=== PATIENT | male | born 1950 | race Caucasian/White ===

== ENCOUNTER 2024-08-29 19:28 | Inpatient (IN) | payer OTHER, MEDICARE, SELFPAY ==
[2024-08-29] VITALS (17 sets, daily range): BP systolic 82–117; BP diastolic 49–74; PULSE 71–85; RESP 16–23; TEMP 36.4–36.8; O2SAT 90–95; BMI 26.2
--- NOTE | 2024-08-29 19:39 | ECG_ITS ---
APPROVED REPORT Exam: Resting ECG HR:67 bpm ECG Measurements Heart Rate 67 AXES DC 255 P 22 QRSd 113 QRS 61 QT 407 T 89 QTc 422 Conclusion SINUS RHYTHM WITH FIRST DEGREE AV BLOCK POSSIBLE ANTERIOR MYOCARDIAL INFARCTION , PROBABLY OLD [30 ms Q WAVE IN V3/V4, OR R < 0.2 mV IN V4] INFERIOR MYOCARDIAL INFARCTION , POSSIBLY ACUTE [40+ ms Q WAVE AND/OR ST/T ABNORMALITY IN II/aVF] ACUTE DE Electronically signed by : LILI CHI, 08/29/2024 22:19:33
--- NOTE | 2024-08-29 19:45 | ED_ITS ---
Discharge Plan Disposition Chief Complaint: Chest Pain Referrals Follow up/Referrals: Sergey Olmos MD [Primary Care Provider] - See instructions Clinical Impressions Clinical Impression: Myocardial infarction Discharge ED Provider: Rey Arias HPI General Stated Complaint: arms feel weak and dull ache Time Seen by Provider: 08/29/24 19:39 History of Present Illness HPI narrative: Patient is 73-year male with past medical history of hypertension who presents emergency department for evaluation of bilateral arm weakness. Onset was acute, 1-1/2 hours prior to arrival, no chest pain abdominal pain shortness of breath headache or other acute complaints at this time. No trauma. Related Data Allergies Allergy/AdvReac Type Severity Reaction Status Date / Time Penicillins (PENICILLINS) Allergy Mild Unknown Verified 08/29/24 19:47 allergy reaction [facility] Disclaimer: The information contained in this section may have been updated after the patient was seen, as this information can be updated by other users. Social History Smoking Status: Unknown if ever smoked alcohol intake: never current occupational status: other Travel in the last 8 weeks: None ROS Obtained: Yes Systems reviewed as appropriate & no additional complaints except as documented Physical Exam General General appearance: alert and in no apparent distress Head Head exam: atraumatic and normocephalic Eye Eye exam: Present PERRL and EOMI ENT ENT exam: Present mucous membranes moist Neck Neck exam: Present normal inspection Chest Chest inspection: Present normal inspection and symmetric chest wall rise Respiratory Respiratory exam: Present normal lung sounds bilaterally; Absent respiratory distress Cardiovascular Cardiovascular exam: Present regular rate and normal rhythm Abdominal Exam Abdominal exam: Present soft; Absent tenderness Extremities Exam Extremities exam: Present normal inspection and other (5 out of 5 strength bilateral upper and lower extremities, palpable bilateral radial pulses.) Neurological Exam Neurological exam: Present alert and CN II-XII intact Psychiatric Psychiatric exam: Present normal affect Skin Skin exam: Present warm and dry HEART Score HEART Score HEART Score assessment performed?: No History (anamnesis): Highly suspicious ECG: Significant ST-deviation Age: >65 years Risk factors: 1-2 risk factors Critical Care Critical Care Time Critical Care Time: Yes Attestation: On , the high probability of a clinically significant, sudden or life threatening deterioration of the following system(s) required my full and direct attention, intervention and personal management. The time I documented below is in addition to time spent performing reported procedures but includes the following listed in this critical care notation. Total Time Total Critical Care Time: 30 Medical Decision Making Mendez Inquiry Pt receiving controlled substance: No Response Orders (Tests/Meds): ED MEDICATIONS Generic Name Dose Route Start Last Admin Trade Name Freq PRN Reason Stop Dose Admin Aspirin 324 mg 08/29/24 19:43 Aspirin 81mg Chewable Tablet PO 08/29/24 19:44 ONCE ONE Sodium Chloride 1,000 mls @ 25 mls/hr 08/29/24 19:45 Sod Chlor 0.9% 1000ml Bag IV 09/28/24 19:44 .Q25H LIZ Miscellaneous 1 each 08/29/24 19:45 Heparin Drip Consult NOTAPPLIC 08/30/24 07:44 CONSULT PHARMACY LIZ Sodium Chloride 10 ml 08/29/24 19:43 Sodium Chloride 0.9% 10ml Flush Syringe IV 09/28/24 19:42 NEEDED PRN Maintain IV Site ORDERS Category Date Time Status Consult to Cardiology [CONS] Stat Cons 08/29/24 19:44 Active Complete Blood Count Auto Diff Stat Lab 08/29/24 19:44 Ordered Comprehensive Metabolic Panel Stat Lab 08/29/24 19:44 Ordered Lipid Panel Stat Lab 08/29/24 19:44 Ordered Troponin I Q3H Lab 08/29/24 22:45 Ordered Troponin I Q3H Lab 08/30/24 01:45 Ordered Troponin I Stat Lab 08/29/24 19:44 Ordered MDM Narrative Medical Decision Narrative: Insert me patient is 73-year-old male with past medical history of scrota presents Emergency Department for evaluation of weakness. EKG obtained at bedside patient is having an inferior STEMI with reciprocal changes upon arrival. He is not having chest pain. The case was immediately discussed with Dr. Bolanos, full dose aspirin and heparin will be given patient will proceed for heart catheterization at this time. Heart score was not performed due to initial troponin pending at time of transfer to Patient Account Analyst.
[2024-08-29] MEDS: ASPIRIN 81MG CHEWABLE TABLET 324 MG PO (19:47)
[2024-08-29] MEDS: HEPARIN SODIUM 5,000 UNIT/ML VIAL 4000 UNIT IV (19:50)
[2024-08-29] MEDS: 0.9 % SODIUM CHLORIDE 1000ML 1,000 ML 25 ML IV (19:51)
[2024-08-29 19:57] LABS: Basophils % 0.3 % (0.1-2.0); Eosinophils # 0.1 Kmm3 (0.0-0.4); Eosinophils % 0.7 % (0.1-12.0); Hemoglobin 16.1 g/dL (14.1-18.0); Lymphocytes # 1.6 K/mm3 (0.7-4.5); Lymphocytes % 16.3 % (10-50); Mean Corpuscular Hemoglobin 32.8 pg (27.0-31.2); Mean Corpuscular Volume 93.7 fl (80-94); Mean Platelet Volume 10.7 fl (7.4-10.4); Monocytes # 0.8 K/mm3 (0.1-1.0); Monocytes % 8.2 % (1.7-9.3); Neutrophils # 7.2 K/mm3 (1.8-7.8); Neutrophils % 74.1 % (37.0-80.0); Nucleated Red Blood Cells # 0 10^3/uL; Nucleated Red Blood Cells % 0 %; Platelet Count 143 K/mm3 (142-424); Red Blood Count 4.91 M/mm3 (4.60-6.20); Red Cell Distribution Width 12.4 % (11.5-17.5); Red Cell Distribution Width-SD 42.5 fL; White Blood Count 9.7 K/mm3 (4.8-10.8)
--- NOTE | 2024-08-29 19:58 | IR_ITS ---
APPROVED REPORT Patient Location: Emergent Weight Clerk: ROSALINDA Garrido RT (R) PROCEDURES Selective coronary angiogram Mechanical l thrombectomy to the dominant right coronary Drug-eluting stent deployment to the mid dominant right coronary INDICATION Acute inferolateral ST elevation myocardial infarction, Coronary artery disease Informed consent was obtained prior to the procedure. COMPLICATIONS NONE Estimated Blood Loss: LESS THAN 10 ML TECHNIQUE One percent lidocaine used to anesthetize the right anterior aspect of the wrist. The right radial artery was accessed via the Seldinger technique. A 6 Syrian sheath was placed in the right radial artery. 2.5 mg of Verapamil, 800 mcg of nitroglycerin, 1mg Lidocaine and 5000 U Heparin were given through the arterial sheath. The 6 Syrian JL 3 guide catheter was also used to perform selective coronary angiogram. 4300 units of heparin was administered in the emergency department. The guide catheter was placed in dominant right coronary followed by Choice PT extra-support wire placed distally. A penumbra mechanical thrombectomy device was advanced and aspirated a large thrombus thereby restoring JERRELL-3 flow. A 5 mm x 26 mm [place] frontier stent was deployed at 14 mendy reducing the critical stenosis to 0%. JERRELL 0 flow was present at the beginning of the procedure with JERRELL-3 flow at the end the procedure. At the end the procedure the apparatus was removed the sheath was removed and hemostasis was achieved using TR banding patient was transferred to the postop boarding in stable condition ANGIOGRAPHIC RESULTS The left main artery Normal The left anterior descending artery Has proximal and mid vessel 30% stenoses The circumflex artery Large nondominant highly tortuous with mild luminal regularities The right coronary artery Massively large and dominant with proximal and mid vessel 20% stenosis and occluded after the RV marginal branch. Following revascularization the right coronary artery was widely patent with diffuse 10 to 20% stenoses with JERRELL-3 inline flow The ARMENTA ventriculogram reveals Not performed The left ventricular end-diastolic pressure Not measured IMPRESSION Acute inferolateral ST elevation myocardial infarction Successful mechanical thrombectomy followed by drug-eluting stent deployment of the massively large dominant right coronary artery 1 out of percent occlusion reduced to 0% as described above with 1 drug-eluting stent PLAN 1. Plavix and aspirin 2. LDL less than 55 achieved with high intensity statin 3. At least 48 hours of continuous telemetry 4. Supportive care 5. Echocardiogram in the morning 6. Avoidance of tobacco products Electronically signed by : Jackson Bolanos MD 08/29/2024 20:39:31
[2024-08-29 20:06] LABS: Alanine Aminotransferase 18 U/L (12-78); Albumin Level 4.3 g/dl (3.5-5.0); Albumin/Globulin Ratio 1.2 (1.1-1.8); Alkaline Phosphatase 78 U/L (38-126); Anion Gap 10.7 mEq/L (5-15); Aspartate Amino Transferase 29 U/L (17-59); Bilirubin,Total 0.7 mg/dl (0.2-1.3); Blood Urea Nitrogen 19 mg/dl (9-20); Calcium 9.3 mg/dl (8.4-10.2); Carbon Dioxide 31 mmol/L (22.0-30.0); Chloride 99 mmol/L (98-107); Chol/HDL Ratio 4.4 (1-3.5); Cholesterol 153 mg/dl (140-200); Creatinine Clearance Estimated 85 mL/min (50-200); Estimated Glomerular Filt Rate 73 ml/min (>60); GFR (African American) 88 ML/MIN (>60); Globulin 3.5 g/dL (1.3-3.2); Glucose 137 mg/dl (74-100); HDL Cholesterol 35 mg/dl (40-60); Potassium 3.7 mmoL/L (3.5-5.1); Sodium 137 mmol/L (136-145); Total Protein,Serum 7.8 g/dl (6.3-8.2); Triglycerides 294 mg/dl (30-150); VLDL Cholesterol 59 mg/dL (0-40)
--- NOTE | 2024-08-29 20:08 | PC.NURSE ---
Patient transported to candlemaking laborer by household appliance assembler and DORIAN Cardenas
[2024-08-29 20:17] LABS: Direct LDL Cholesterol 71.14 mg/dL (100-129)
[2024-08-29 20:23] LABS: Troponin I < 0.01 ng/ml (0.00-0.034)
[2024-08-29] MEDS: LIDOCAINE 1% 10ML MDV 10 ML IJ (20:47)
[2024-08-29] MEDS: NITROGLYCERIN 800MCG/8ML SYR (CATH LAB) 800 MCG IA (20:48)
[2024-08-29] MEDS: 0.9 % SODIUM CHLORIDE 500 ML 25 ML IV (20:48)
[2024-08-29] MEDS: HEPARIN 1,000 UNITS/500ML NS (CATH LAB) 3000 UNIT IV (20:48)
[2024-08-29] MEDS: diphenhydrAMINE 50MG/ML VIAL 50 MG IV (20:48)
[2024-08-29] MEDS: VERAPAMIL 2.5MG/ML 2ML VIAL 2.5 MG IV (20:48)
[2024-08-29] MEDS: CLOPIDOGREL 300MG TABLET 600 MG PO (21:05)
[2024-08-29] MEDS: IOPAMIDOL-370 (76%);100ML BOTTLE 90 ML IV (21:10)
[2024-08-29 21:12] LABS: CATHL Activated Clotting Time 288 SEC (74-125)
--- NOTE | 2024-08-29 21:34 | PC.NURSE ---
Patient arrived to floor via stretcher from manager cardiac cath at 21:16.
[2024-08-29 22:04] LABS: POC Glucose,Bedside 115 (70-110)
--- NOTE | 2024-08-29 22:12 | P.HP_ITS ---
<Statement entered by Sandoval Sorto MD - 08/30/24 17:16> Rounded on patient after nurse practitioner. Personally examined and interviewed patient. Agree with exam findings and care plan as documented. History of Present Illness *Admission Date: 08/29/24 *Reason for visit:: Arm weakness *History of present illness: This is a 73-year-old male who has a past medical history significant for hypertension who presents with a chief complaint of bilateral arm weakness. Due to patient's symptoms, he presented to the emergency room for evaluation. While in the emergency room, patient was noted to have an acute STEMI. Acute STEMI alert was activated. Patient was given DAPT therapy and transition to the microbiological laboratory technician for percutaneous coronary intervention. During my evaluation of the patient, patient was not complaining of any chest pain but reports that he has been having this arm weakness that started about 1- 1/2 hours prior to presenting to the hospital. He is currently without any lightheadedness, dizziness, PND, orthopnea, nausea, vomiting, shortness of breath, dyspnea, or diarrhea. Additional pertinent labs obtained include a bicarbonate of 31, blood glucose 137, triglycerides of 294, LDL of 71, and HDL 35. [facility] Disclaimer: The information contained in this section may have been updated after the patient was seen, as this information can be updated by other users. Medical History (Updated 08/30/24 @ 09:23 by DEBRA Weston) Pneumonia Hyperlipidemia Myocardial infarction acute Bladder cancer Hypertension Surgical History (Updated 08/29/24 @ 22:16 by Belle Yang RN) H/O hand surgery History of bladder surgery Family History (Updated 08/29/24 @ 22:18 by Belle Yang RN) Alzheimer dementia Brain cancer Lung cancer Social History (Updated 08/29/24 @ 22:19 by Belle Yang RN) Smoking Status: Current every day smoker alcohol intake: never current occupational status: other Travel in the last 8 weeks: None Have you lived/traveled outside US in past 30 days?: No Contact w/someone who lives/traveled outside US past 30 days?: No Exposure to someone with infectious disease in past 14 days?: No Do you have a fever (greater than 100.4 F or 38 C)?: No Have you tested positive for COVID-19: No Exposed to someone with COVID-19 in past 14 days?: No Do you have a sore throat?: No Do you have a cough?: No Do you have any weakness?: No Are you experiencing any nausea/vomitting?: No Do you have any diarrhea?: No Are you experiencing any unusual bleeding?: No Do you have any muscle aches/pain?: No Do you have any abdominal pain?: No Are you experiencing loss of taste or smell?: No Review of Systems Review of Systems Review of systems:: pertinent systems reviewed and negative unless documented below Constitutional Constitutional: Reports system reviewed and no additional complaints, except as documented Eyes Eyes: Reports system reviewed and no additional complaints, except as documented ENT Ears, Nose, Mouth, and Throat: Reports system reviewed and no additional compl aints, except as documented *Cardiovascular Cardiovascular: Reports system reviewed and no additional complaints, except as documented *Respiratory Respiratory: Reports system reviewed and no additional complaints, except as documented *Gastrointestinal Gastrointestinal: Reports system reviewed and no additional complaints, except as documented *Genitourinary Genitourinary: Reports system reviewed and no additional complaints, except as documented *Musculoskeletal Musculoskeletal: Reports other Comments: Bilateral arm weakness Integumentary/Breasts Skin/Breast: Reports system reviewed and no additional complaints, except as documented *Neurologic Neurologic: Reports system reviewed and no additional complaints, except as documented Psychiatric Psychiatric: Reports system reviewed and no additional complaints, except as documented Endocrine Endocrine: Reports system reviewed and no additional complaints, except as documented Hematologic/Lymphatic Hematologic/Lymphatic: Reports system reviewed and no additional complaints, except as documented Allergic/Immunologic Allergic/Immunologic: Reports system reviewed and no additional complaints, except as documented Meds Home Medications and Allergies Home Medications ?Medication ?Instructions ?Recorded ?Confirmed ?Type aspirin 81 mg tablet,delayed 81 mg PO DAILY 08/29/24 08/29/24 History release hydrochlorothiazide 25 mg tablet 25 mg PO Q48H 08/29/24 08/30/24 History New Prescriptions to Start Prescriptions: Allergies Allergy/AdvReac Type Severity Reaction Status Date / Time Penicillins (PENICILLINS) Allergy Mild Unknown Verified 08/29/24 19:47 allergy reaction Exam Data for Last 24 hours Vital signs and Labs for Last 24 Hours: Temp Pulse Resp BP Pulse Ox O2 Del Method 97.8 F 81 16 92/56 L 94 L Room Air 08/29/24 21:30 08/29/24 22:00 08/29/24 22:00 08/29/24 22:00 08/29/24 22:00 08/29/24 22:00 Laboratory Results - last 24 hr 08/29/24 19:47: WBC 9.7, RBC 4.91, Hgb 16.1, Hct 46.0, MCV 93.7, MCH 32.8 H, MCHC 35.0, RDW 12.4, Plt Count 143, MPV 10.7 H, Neut % (Auto) 74.1, Lymph % (Auto) 16.3, [place] % (Auto) 8.2, Eos % (Auto) 0.7, Baso % (Auto) 0.3, Neut # (Auto) 7.2, Lymph # (Auto) 1.6, [place] # (Auto) 0.8, Eos # (Auto) 0.1, Baso # (Auto) 0.0, Sodium 137, Potassium 3.7, Chloride 99, Carbon Dioxide 31 H, Anion Gap 10.7, BUN 19, Creatinine 1.00, Estimated Creat Clear 85, Estimated GFR 73, Est GFR ( Amer) 88, Glucose 137 H, Calcium 9.3, Total Bilirubin 0.7, AST 29, ALT 18, Alkaline Phosphatase 78, Troponin I < 0.01, Total Protein 7.8, Albumin 4.3, Globulin 3.5 H, Albumin/Globulin Ratio 1.2, Triglycerides 294 H, Cholesterol 153, LDL Cholesterol Direct 71.14 L, VLDL Cholesterol 59 H, HDL Cholesterol 35 L, Cholesterol/HDL Ratio 4.4 H 08/29/24 20:15: Activated Clotting Time 288 H* 08/29/24 21:54: POC Glucose 115 H I & O for Last 24 hours: Intake & Output 08/26/24 08/27/24 08/28/24 08/29/24 23:59 23:59 23:59 23:59 Weight 92.624 kg Constitutional Constitutional: no acute distress and cooperative *Routine HEENT Exam Head: Present normocephalic and atraumatic Eye: Present EOMI and PERRL ENT: Present mucous membranes moist *Routine Neck Exam Neck: Present supple, full ROM and trachea midline *Routine Respiratory Exam Respiratory: Present decreased breath sounds, normal respiratory effort, able to speak in complete sentences and symmetric chest movement *Routine Cardiovascular Exam Cardiovascular: Present RRR, Normal S1 and Normal S2 *Routine Abdominal Exam Abdominal: Present soft and normoactive bowel sounds *Routine Rectal Exam Rectal:: deferred *Routine Genitalia Exam Genitalia:: deferred *Routine Extremities Exam Extremities: Present full ROM, pulses intact and normal capillary refill Routine Back/Spine/Pelvis Exam Back/Spine: Present full ROM *Routine Skin Exam Skin: Present intact, dry, warm and normal turgor *Routine Neurological Exam Neurological: Present alert, oriented X3, CN II-XII intact, moving all extremities and normal speech Routine Psychiatric Exam Psychiatric: Present normal affect, normal thought process, cooperative, good insight and good judgment H&P: Result Impressions 73-year-old male presents with arm heaviness with EKG findings consistent with inferior CT. Patient was transition to the Escrow Assistant for acute coronary intervention Assessment and Plan *Assessment and plan (1) Myocardial infarction: Status: Acute Qualifiers: Involved coronary artery: right coronary artery Myocardial infarction type: unspecified Qualified Code(s): I21.11 - ST elevation (STEMI) myocardial infarction involving right coronary artery Category: Medical Code(s): I21.9 - Acute myocardial infarction, unspecified Plan 73-year-old male who presented with bilateral arm weakness and pain. Found to have inferior STEMI on presentation. Taken to Escrow Assistant, drug-eluting stent placed in the RCA after thrombectomy. Case discussed with the ER physician, request admission after heart cath. Medicine agreed to admit. Continue aspirin and Plavix. Necessitating inpatient management. Problems addressed as follows: Assessment: Acute STEMI: Inferior - Patient is status post left heart cath with drug-eluting stent to the right coronary artery - Patient has received loading dose of Plavix - Will continue 75 mg of Plavix daily -Will obtain 2D echo in the a.m. - Continue 81 mg of aspirin p.o. daily Hypercholesterolemia - Will start 20 mg of Zocor p.o. nightly Hyperglycemia:? -Obtain hemoglobin A1c Plan: Admit patient to the intensive care unit Saline lock Vital signs every hour CBC/BMP daily 5000 units of heparin subcu 3 times daily 5 mg [place] p.o. every 4 hours for moderate pain 2 mg morphine IV push every 2 hours as needed severe pain 21 mg nicotine patch daily Full code I will discuss this case with attending physician Dr. Madrigal and I look forward to more input
[2024-08-30] VITALS (16 sets, daily range): BP systolic 96–142; BP diastolic 54–92; PULSE 55–87; RESP 14–22; TEMP 36.6–36.8; O2SAT 91–95; BMI 26.2
--- NOTE | 2024-08-30 01:57 | PC.NURSE ---
Called REHANA Morales about pt having runs of v-tach. Pt had a run of 11 beats, 13 beats and 14 beats of vtach. Pt is asleep no complaints of any pain and pt is hemodynamically stable. REHANA advised we will continue to monitor the pt.
--- NOTE | 2024-08-30 04:50 | PC.NURSE ---
Assessed pts radial site. blood this coming thru the 2x2 at this time. direct pressure was held for 10 minutes and a new dressing was placed over the site. At this time bleeding has stopped.
--- NOTE | 2024-08-30 05:09 | ECG_ITS ---
APPROVED REPORT Exam: Resting ECG HR:77 bpm ECG Measurements Heart Rate 77 AXES QRSd 97 QRS -17 QT 421 T -6 QTc 453 Conclusion ATRIAL FIBRILLATION WITH ABERRANT CONDUCTION OR VENTRICULAR PREMATURE COMPLEXES LOW QRS VOLTAGE IN PRECORDIAL LEADS [QRS DEFLECTION < 1.0 mV IN CHEST LEADS] INFERIOR MYOCARDIAL INFARCTION , OF INDETERMINATE AGE [40+ ms Q WAVE AND/OR ST/T ABNORMALITY IN II/aVF] ABNORMAL ECG UNCONFIRMED REPORT Electronically signed by : Mehrdad Ha MD 08/30/2024 08:21:59
--- NOTE | 2024-08-30 05:15 | PC.NURSE ---
Provider notified of EKG that was obtained. REHANA Morales came to look at the ekg and Pt is having PVC's no block at this time.
--- NOTE | 2024-08-30 05:18 | ECG_ITS ---
APPROVED REPORT Exam: Resting ECG HR:67 bpm ECG Measurements Heart Rate 67 AXES QRSd 103 QRS -10 QT 413 T -2 QTc 428 Conclusion SUPRAVENTRICULAR Bracycardia RHYTHM with frequent pvcs ANTERIOR MYOCARDIAL INFARCTION , PROBABLY OLD [40+ ms Q WAVE AND/OR ST/T ABNORMALITY IN V3/V4] INFERIOR MYOCARDIAL INFARCTION , OF INDETERMINATE AGE [40+ ms Q WAVE AND/OR ST/T ABNORMALITY IN II/aVF] ABNORMAL ECG UNCONFIRMED REPORT Electronically signed by : Mehrdad Ha MD 08/31/2024 08:17:45
--- NOTE | 2024-08-30 05:30 | PC.NURSE ---
Stuart Morales APRN was given an EKG on the patient and after he looked at it he was going to give Dr. Bolanos a call.
--- NOTE | 2024-08-30 05:30 | PC.NURSE ---
Went into check pts radial site, at this time blood is coming thru the 2x2. Direct pressure was applied for 10 minutes and then a new bandage was applied. pt was instructed to try and not bed the right wrist or to not use it if at all possible to try and help it not bleed
[2024-08-30 06:22] LABS: Basophils % 0.5 % (0.1-2.0); Eosinophils # 0.1 Kmm3 (0.0-0.4); Hematocrit 42.5 % (42.0-52.0); Hemoglobin 14.9 g/dL (14.1-18.0); Lymphocytes # 1.3 K/mm3 (0.7-4.5); Lymphocytes % 21.2 % (10-50); Mean Corpuscular HGB Conc 35.1 g/dL (31.8-35.4); Mean Corpuscular Hemoglobin 32.7 pg (27.0-31.2); Mean Corpuscular Volume 93.2 fl (80-94); Monocytes # 0.7 K/mm3 (0.1-1.0); Monocytes % 11.7 % (1.7-9.3); Neutrophils # 4.1 K/mm3 (1.8-7.8); Neutrophils % 65.3 % (37.0-80.0); Nucleated Red Blood Cells # 0 10^3/uL; Nucleated Red Blood Cells % 0 %; Platelet Count 106 K/mm3 (142-424); Red Blood Count 4.56 M/mm3 (4.60-6.20); Red Cell Distribution Width 12.4 % (11.5-17.5); Red Cell Distribution Width-SD 42.5 fL; White Blood Count 6.2 K/mm3 (4.8-10.8)
[2024-08-30 06:26] LABS: Chloride 101 mmol/L (98-107)
[2024-08-30 06:27] LABS: Potassium 3.9 mmoL/L (3.5-5.1); Sodium 136 mmol/L (136-145)
[2024-08-30 06:29] LABS: Blood Urea Nitrogen 20 mg/dl (9-20); Creatinine Clearance Estimated 85 mL/min (50-200); Estimated Glomerular Filt Rate 73 ml/min (>60); GFR (African American) 88 ML/MIN (>60)
[2024-08-30 06:30] LABS: Anion Gap 4.9 mEq/L (5-15); Carbon Dioxide 34 mmol/L (22.0-30.0); Glucose 98 mg/dl (74-100)
[2024-08-30] MEDS: CLOPIDOGREL 75MG TAB 75 MG PO (08:07)
[2024-08-30] MEDS: ASPIRIN EC 81MG TABLET 81 MG PO (08:07)
[2024-08-30 08:31] LABS: Hemoglobin A1C 5.2 % (4.0-6.0)
--- NOTE | 2024-08-30 08:53 | HMH.PHAINT1 ---
Pharmacy Intervention Comments: MEDICATION RECONCILIATION COMPLETED ON PATIENT VIA CALL TO [facility]. -ALIZA DEMARCO, MERCEDEZD
--- NOTE | 2024-08-30 09:00 | CA_ITS ---
APPROVED REPORT EXAM: Comprehensive 2D, Doppler, and color-flow Echocardiogram Seed Potato Cutter: Eli Dobson CRT Ht: 6 ft 2 in Wt: 204lbs BSA: 2.19 BP: 92/56 mmHg Indications: STEMI, Hyperlipidemia, Hypertension/HDD, bladder CA, thrombectomy 08/29/24 , run of [employer] at 5 am 2D Dimensions LA Volume 35.80 mL LA Volume Index 16.00 mL/m2 (M/F) 16-34 M-Mode Dimensions RVDd 3.90 cm (0.9-2.6) LA Diam 2.94 cm (1.9-4.0) LVDd 4.86 cm (3.5-5.7) LVDs 3.82 cm (3.5-5.7) IVSd 1.29 cm (0.6-1.1) PWd 0.76 cm (0.6-1.1) EF (Teich) 43.40% FS 21.40% EDV (Teich) 110.70 mL TAPSE 2.02 (<1.7) ESV (Teich) 62.70 mL LV Diastology E Decel Time 133 (160-240 msec) E/A Ratio 0.61 MED A' 12.10 cm/s LAT A' 9.40 cm/s Aortic Valve AO Peak GR. 4.20 mmHg Mitral Valve MV A Velocity 73.0 (40-130 cm/s) E/A Ratio 0.61 Pulmonary Valve PV Peak Velocity 89.0 (50-150 cm/s) Tricuspid Valve TR P. Velocity 172.00 cm/s RAP Estimate 10.00 mmHg RVSP 21.80 mmHg Left Ventricle The left ventricle is normal size. The left ventricular systolic function is mildly to moderately reduced. There is normal left ventricular wall thickness. There is mild to moderate global hypokinesis. The left ventricular diastolic function is normal. LVEF is 40%. Right Ventricle Right ventricle is moderately dilated. Right ventricle is mildly hypokinetic. Atria The left atrium size is normal. The right atrium is mildly dilated. There is no Doppler evidence of interatrial shunt. The aortic valve is mildly thickened. Aortic Valve There is no aortic valvular stenosis. No aortic regurgitation is present. Mitral Valve The mitral valve is normal in structure. No evidence of mitral valve stenosis. Trace mitral regurgitation. Tricuspid Valve Tricuspid valve is grossly normal in structure and function. Trace tricuspid regurgitation. There is insufficient TR jet to estimate RVSP. Pulmonic Valve The pulmonary valve is normal in structure. Trace pulmonic regurgitation. Great Vessels The aortic root is normal in size. IVC is normal in size and collapses >50% with inspiration. Pericardium There is no pericardial effusion. Other Information Study Quality: Fair Conclusion Mild to moderate reduction in LV systolic function (LVEF 40%). Moderate RV dilation with mild reduction in RV function. Mild RA dilation. No significant valvular stenosis or regurgitation. Electronically signed by : Bushra Owens MD 08/30/2024 12:43:54
--- NOTE | 2024-08-30 09:13 | EXP.CARD.CON ---
History of Present Illness History of Present Illness Consult date: 08/30/24 Requesting physician: Da Madrigal Consult reason: chest pain Chief complaint: STEMI Additional Medical History:: 1. Tobacco use A. 1 ppd for 55 yrs 2. PAF A. History of cardioversion about 2021. No OAC or rate/rhythm control meds started. 3. HTN A. Treated for years 4. HLD A. LDL 71 on 08/29/2024 History of present illness: 73 yo WM with history of tobacco use, HTN and hyperlipidemia presented to ER for 1 and 1/2 hrs of bilateral upper arm aching without chest pain/pressure or tightness. EKG revealed inferior STEMI and pt was taken to casting house laborer urgently with subsequent RCA thrombectomy and stenting. This AM he states he is feeling much better. We discussed results of cath and recommendation to monitor for 48 hrs. [facility] Disclaimer: The information contained in this section may have been updated after the patient was seen, as this information can be updated by other users. Medical History (Updated 08/30/24 @ 09:23 by DEBRA Weston) Pneumonia Hyperlipidemia Myocardial infarction acute Bladder cancer Hypertension Surgical History (Updated 08/29/24 @ 22:16 by Belle Yang RN) H/O hand surgery History of bladder surgery Family History (Updated 08/29/24 @ 22:18 by Belle Yang RN) Other Alzheimer dementia Brain cancer Lung cancer Social History (Updated 08/29/24 @ 22:19 by Belle Yang RN) Smoking Status: Current every day smoker alcohol intake: never current occupational status: other Travel in the last 8 weeks: None Have you lived/traveled outside US in past 30 days?: No Contact w/someone who lives/traveled outside US past 30 days?: No Exposure to someone with infectious disease in past 14 days?: No Do you have a fever (greater than 100.4 F or 38 C)?: No Have you tested positive for COVID-19: No Exposed to someone with COVID-19 in past 14 days?: No Do you have a sore throat?: No Do you have a cough?: No Do you have any weakness?: No Are you experiencing any nausea/vomitting?: No Do you have any diarrhea?: No Are you experiencing any unusual bleeding?: No Do you have any muscle aches/pain?: No Do you have any abdominal pain?: No Are you experiencing loss of taste or smell?: No Review of Systems Review of Systems Review of systems:: pertinent systems reviewed and negative unless documented below *Cardiovascular Cardiovascular: Denies chest pain *Respiratory Respiratory: Denies chest congestion *Neurologic Neurologic: Reports system reviewed and no additional complaints, except as documented Exam Data for Last 24 hours Vital signs and Labs for Last 24 Hours: Temp Pulse Resp BP Pulse Ox O2 Del Method 98.2 F 66 20 142/92 H 95 Room Air 08/30/24 08:00 08/30/24 09:00 08/30/24 09:00 08/30/24 09:00 08/30/24 09:00 08/30/24 09:00 Laboratory Results - last 24 hr 08/29/24 19:47: WBC 9.7, RBC 4.91, Hgb 16.1, Hct 46.0, MCV 93.7, MCH 32.8 H, MCHC 35.0, RDW 12.4, Plt Count 143, MPV 10.7 H, Neut % (Auto) 74.1, Lymph % (Auto) 16.3, [place] % (Auto) 8.2, Eos % (Auto) 0.7, Baso % (Auto) 0.3, Neut # (Auto) 7.2, Lymph # (Auto) 1.6, [place] # (Auto) 0.8, Eos # (Auto) 0.1, Baso # (Auto) 0.0, Sodium 137, Potassium 3.7, Chloride 99, Carbon Dioxide 31 H, Anion Gap 10.7, BUN 19, Creatinine 1.00, Estimated Creat Clear 85, Estimated GFR 73, Est GFR ( Amer) 88, Glucose 137 H, Calcium 9.3, Total Bilirubin 0.7, AST 29, ALT 18, Alkaline Phosphatase 78, Troponin I < 0.01, Total Protein 7.8, Albumin 4.3, Globulin 3.5 H, Albumin/Globulin Ratio 1.2, Triglycerides 294 H, Cholesterol 153, LDL Cholesterol Direct 71.14 L, VLDL Cholesterol 59 H, HDL Cholesterol 35 L, Cholesterol/HDL Ratio 4.4 H 08/29/24 20:15: Activated Clotting Time 288 H* 08/29/24 21:54: POC Glucose 115 H 08/29/24 22:51: Troponin I 40.00 H 08/30/24 01:53: Troponin I 116.00 H 08/30/24 05:54: WBC 6.2 D, RBC 4.56 L, Hgb 14.9, Hct 42.5, MCV 93.2, MCH 32.7 H, MCHC 35.1, RDW 12.4, Plt Count 106 L D, MPV 11.0 H, Neut % (Auto) 65.3, Lymph % (Auto) 21.2, [place] % (Auto) 11.7 H, Eos % (Auto) 1.0, Baso % (Auto) 0.5, Neut # (Auto) 4.1, Lymph # (Auto) 1.3, [place] # (Auto) 0.7, Eos # (Auto) 0.1, Baso # (Auto) 0.0, Sodium 136, Potassium 3.9, Chloride 101, Carbon Dioxide 34 H, Anion Gap 4.9 L, BUN 20, Creatinine 1.00, Estimated Creat Clear 85, Estimated GFR 73, Est GFR ( Amer) 88, Glucose 98 D, Hemoglobin A1c 5.2, Calcium 9.0 I & O for Last 24 hours: Intake & Output 08/27/24 08/28/24 08/29/24 08/30/24 11:59 11:59 11:59 11:59 Intake Total 590 / 590 Output Total 300 / 300 Balance 290 / 290 Weight 204 lb 3.215 oz Constitutional Constitutional: no acute distress *Routine Respiratory Exam Respiratory: Present CTA bilaterally; Absent wheezes or crackles *Routine Cardiovascular Exam Cardiovascular: Present RRR; Absent murmur, gallop or rubs *Routine Extremities Exam Extremities: Absent edema Meds Home Medications and Allergies Home Medications ?Medication ?Instructions ?Recorded ?Confirmed ?Type aspirin 81 mg tablet,delayed 81 mg PO DAILY 08/29/24 08/29/24 History release hydrochlorothiazide 25 mg tablet 25 mg PO Q48H 08/29/24 08/30/24 History New Prescriptions to Start Prescriptions: Allergies Allergy/AdvReac Type Severity Reaction Status Date / Time Penicillins (PENICILLINS) Allergy Mild Unknown Verified 08/29/24 19:47 allergy reaction Assessment and Plan *Assessment and plan (1) STEMI (ST elevation myocardial infarction): Status: Acute Qualifiers: Involved coronary artery: right coronary artery Qualified Code(s): I21.11 - ST elevation (STEMI) myocardial infarction involving right coronary artery Category: Medical Code(s): I21.3 - ST elevation (STEMI) myocardial infarction of unspecified site (2) Tobacco use: Status: Acute Category: Social Hx Code(s): Z72.0 - Tobacco use (3) Hyperlipidemia: Status: Acute Qualifiers: Hyperlipidemia type: mixed hyperlipidemia Qualified Code(s): E78.2 - Mixed hyperlipidemia Category: Medical Code(s): E78.5 - Hyperlipidemia, unspecified (4) Hypertension: Status: Acute Qualifiers: Hypertension type: primary hypertension Qualified Code(s): I10 - Essential (primary) hypertension Category: Medical Code(s): I10 - Essential (primary) hypertension Plan 1. Inferior STEMI -CHERELLE to RCA -ASA and plavix -atorvastatin 40 mg daily 2. HTN -lisinopril 2.5 mg daily -check echo 3. HLD -start atorvastatin -LDL 71 4. History of A. fib X 1 with cardioversion about 2021 -monitor on telemetry -no OAC at this time -CHADS-VASC is 3 5. thrombocytopenia -plt dropped from 143 to 106. -repeat in AM Monitor for 48 hrs. Will send home with 2 wks monitor to assess for A. fib due to history. adjust meds to include FROY and BB. Echo shows LVEF of 40% with mild to moderate global hpokinesis. Moderate RV dilation with mild RV hypokinesis. No significant valve disease. Anticipate discharge tomorrow afternoon if stable.
[2024-08-30] MEDS: SODIUM CHLORIDE 3% 15ML NEB 3 ML IH (09:22)
[2024-08-30] MEDS: LISINOPRIL 2.5MG TABLET 2.5 MG PO (09:59)
[2024-08-30] MEDS: METOPROLOL SUCCINATE XL 25MG TABLET 25 MG PO (16:14)
--- NOTE | 2024-08-30 17:13 | EXP.ACUTE.PN ---
Subjective *Date: 08/30/24 *Time: 17:31 Interval history: Patient feeling better today. Denies any arm weakness or pain. Denies chest pain. Stable on room air. Monitoring overnight, had some intermittent PVCs but no sustained arrhythmias. Family at bedside. Overall feeling well Medical Exam Vital signs and Labs for Last 24 Hours: Vital Signs Temp Pulse Pulse Resp BP BP Pulse Ox 08/30/24 16:00 60 08/30/24 16:00 98.1 F 76 16 111/58 L 93 L 08/30/24 15:00 08/30/24 13:00 08/30/24 12:00 70 08/30/24 12:00 87 18 114/68 94 L 08/30/24 11:00 08/30/24 09:22 74 18 08/30/24 09:00 66 20 142/92 H 95 08/30/24 09:00 08/30/24 08:00 60 08/30/24 08:00 08/30/24 08:00 98.2 F 65 19 116/72 93 L 08/30/24 07:00 65 20 136/83 93 L 08/30/24 06:50 08/30/24 06:00 61 17 134/87 95 08/30/24 06:00 59 L 18 134/87 94 L 08/30/24 05:00 55 L 14 135/80 94 L 08/30/24 05:00 08/30/24 05:00 63 17 135/90 94 L 08/30/24 04:00 72 22 105/65 L 92 L 08/30/24 04:00 56 L 93 L 08/30/24 04:00 60 08/30/24 04:00 97.9 F 59 L 19 105/65 L 93 L 08/30/24 03:00 58 L 16 97/60 L 93 L 08/30/24 03:00 08/30/24 03:00 60 20 97/60 L 94 L 08/30/24 02:10 65 18 106/63 L 93 L 08/30/24 02:00 62 16 106/63 L 93 L 08/30/24 01:00 98.0 F 67 16 99/65 L 93 L 08/30/24 01:00 08/30/24 01:00 68 17 99/65 L 94 L 08/30/24 00:01 98.2 F 78 18 97/61 L 91 L 08/30/24 00:00 76 08/30/24 00:00 76 92 L 08/30/24 00:00 98.2 F 78 19 97/61 L 92 L 08/29/24 23:31 98.2 F 75 20 104/65 L 93 L 08/29/24 23:01 98.2 F 82 21 95/62 L 94 L 08/29/24 23:00 73 22 96/62 L 94 L 08/29/24 23:00 82 20 95/62 L 94 L 08/29/24 23:00 08/29/24 22:30 98.0 F 81 23 103/66 L 93 L 08/29/24 22:00 98.0 F 85 18 92/56 L 92 L 08/29/24 22:00 81 16 92/56 L 94 L 08/29/24 21:45 97.8 F 81 22 89/59 L 90 L 08/29/24 21:30 97.8 F 82 20 82/54 L 93 L 08/29/24 21:21 84 08/29/24 21:10 80 20 95/50 L 90 L 08/29/24 21:00 08/29/24 21:00 78 20 86/49 L 90 L 08/29/24 21:00 77 82 20 93/58 L 95 08/29/24 20:55 80 20 100/57 L 91 L 08/29/24 20:50 79 18 97/56 L 92 L 08/29/24 20:43 82 93 L 08/29/24 20:43 97.8 F 83 20 82/54 L 93 L 08/29/24 20:21 97.8 F 72 22 117/74 08/29/24 20:00 97.8 F 72 17 117/74 95 08/29/24 19:52 74 23 95 08/29/24 19:43 97.5 F L 71 18 106/70 L 92 L O2 Del Method 08/30/24 16:00 08/30/24 16:00 Room Air 08/30/24 15:00 Room Air 08/30/24 13:00 Room Air 08/30/24 12:00 08/30/24 12:00 08/30/24 11:00 Room Air 08/30/24 09:22 08/30/24 09:00 Room Air 08/30/24 09:00 Room Air 08/30/24 08:00 08/30/24 08:00 Room Air 08/30/24 08:00 Room Air 08/30/24 07:00 Room Air 08/30/24 06:50 Room Air 08/30/24 06:00 Room Air 08/30/24 06:00 Room Air 08/30/24 05:00 Room Air 08/30/24 05:00 Room Air 08/30/24 05:00 Room Air 08/30/24 04:00 Room Air 08/30/24 04:00 Room Air 08/30/24 04:00 08/30/24 04:00 Room Air 08/30/24 03:00 Room Air 08/30/24 03:00 Room Air 08/30/24 03:00 Room Air 08/30/24 02:10 Room Air 08/30/24 02:00 Room Air 08/30/24 01:00 Room Air 08/30/24 01:00 Room Air 08/30/24 01:00 Room Air 08/30/24 00:01 Room Air 08/30/24 00:00 08/30/24 00:00 Room Air 08/30/24 00:00 Room Air 08/29/24 23:31 Room Air 08/29/24 23:01 Room Air 08/29/24 23:00 Room Air 08/29/24 23:00 Room Air 08/29/24 23:00 Room Air 08/29/24 22:30 Room Air 08/29/24 22:00 Room Air 08/29/24 22:00 Room Air 08/29/24 21:45 Room Air 08/29/24 21:30 Room Air 08/29/24 21:21 08/29/24 21:10 08/29/24 21:00 Room Air 08/29/24 21:00 08/29/24 21:00 Room Air 08/29/24 20:55 08/29/24 20:50 08/29/24 20:43 Room Air 08/29/24 20:43 Room Air 08/29/24 20:21 Room Air 08/29/24 20:00 Room Air 08/29/24 19:52 08/29/24 19:43 Room Air Intake and Output 08/30/24 08/30/2408/30/25 07:59 15:59 23:59 Intake Total 240 / 1070 830 / 1070 Output Total 300 / 300 0 / 300 Balance 240 / 770 530 / 770 0 / 770 Intake: Intake, Oral Amount 240 / 1070 830 / 1070 Output: Output, Urine Amount 300 / 300 0 / 300 Other: Number of Unmeasured Voids 0 Weight 92.624 kg Patient Weight 08/30/24 23:59 Weight 92.624 kg Laboratory Results - last 24 hr 08/29/24 19:47: WBC 9.7, RBC 4.91, Hgb 16.1, Hct 46.0, MCV 93.7, MCH 32.8 H, MCHC 35.0, RDW 12.4, Plt Count 143, MPV 10.7 H, Neut % (Auto) 74.1, Lymph % (Auto) 16.3, [place] % (Auto) 8.2, Eos % (Auto) 0.7, Baso % (Auto) 0.3, Neut # (Auto) 7.2, Lymph # (Auto) 1.6, [place] # (Auto) 0.8, Eos # (Auto) 0.1, Baso # (Auto) 0.0, Sodium 137, Potassium 3.7, Chloride 99, Carbon Dioxide 31 H, Anion Gap 10.7, BUN 19, Creatinine 1.00, Estimated Creat Clear 85, Estimated GFR 73, Est GFR ( Amer) 88, Glucose 137 H, Calcium 9.3, Total Bilirubin 0.7, AST 29, ALT 18, Alkaline Phosphatase 78, Troponin I < 0.01, Total Protein 7.8, Albumin 4.3, Globulin 3.5 H, Albumin/Globulin Ratio 1.2, Triglycerides 294 H, Cholesterol 153, LDL Cholesterol Direct 71.14 L, VLDL Cholesterol 59 H, HDL Cholesterol 35 L, Cholesterol/HDL Ratio 4.4 H 08/29/24 20:15: Activated Clotting Time 288 H* 08/29/24 21:54: POC Glucose 115 H 08/29/24 22:51: Troponin I 40.00 H 08/30/24 01:53: Troponin I 116.00 H 08/30/24 05:54: WBC 6.2 D, RBC 4.56 L, Hgb 14.9, Hct 42.5, MCV 93.2, MCH 32.7 H, MCHC 35.1, RDW 12.4, Plt Count 106 L D, MPV 11.0 H, Neut % (Auto) 65.3, Lymph % (Auto) 21.2, [place] % (Auto) 11.7 H, Eos % (Auto) 1.0, Baso % (Auto) 0.5, Neut # (Auto) 4.1, Lymph # (Auto) 1.3, [place] # (Auto) 0.7, Eos # (Auto) 0.1, Baso # (Auto) 0.0, Sodium 136, Potassium 3.9, Chloride 101, Carbon Dioxide 34 H, Anion Gap 4.9 L, BUN 20, Creatinine 1.00, Estimated Creat Clear 85, Estimated GFR 73, Est GFR ( Amer) 88, Glucose 98 D, Hemoglobin A1c 5.2, Calcium 9.0 I & O for Labs for Last 24 Hours: Intake & Output 08/27/24 08/28/24 08/29/24 08/30/24 23:59 23:59 23:59 23:59 Intake Total 1070 / 1070 Output Total 300 / 300 Balance 770 / 770 Weight 92.624 kg 92.624 kg Constitutional: Present no acute distress, average body habitus and cooperative Head: Present atraumatic and normocephalic ENT: Present normal exam Respiratory: Present normal respiratory effort; Absent rhonchi, wheezes or crackles Cardiac: Present Reg Rate and Rhythm GI: Present soft and normal bowel sounds; Absent distention or tenderness Extremities: Present normal inspection and full ROM Skin: Present intact; Absent erythema Neuro: Present Grossly Intact, alert, awake, oriented x 3 and moves all extremities Assessment and Plan *Assessment and plan (1) STEMI (ST elevation myocardial infarction): Status: Acute Qualifiers: Involved coronary artery: right coronary artery Qualified Code(s): I21.11 - ST elevation (STEMI) myocardial infarction involving right coronary artery Category: Medical Code(s): I21.3 - ST elevation (STEMI) myocardial infarction of unspecified site (2) Hypertension: Status: Acute Qualifiers: Hypertension type: primary hypertension Qualified Code(s): I10 - Essential (primary) hypertension Category: Medical Code(s): I10 - Essential (primary) hypertension (3) Hyperlipidemia: Status: Acute Qualifiers: Hyperlipidemia type: mixed hyperlipidemia Qualified Code(s): E78.2 - Mixed hyperlipidemia Category: Medical Code(s): E78.5 - Hyperlipidemia, unspecified (4) Tobacco use: Status: Acute Category: Social Hx Code(s): Z72.0 - Tobacco use Plan 73-year-old male who presented with bilateral arm weakness and pain. Found to have inferior STEMI on presentation. Taken to Steam Conditioning Operator, drug-eluting stent placed in the RCA after thrombectomy. Continue aspirin and Plavix. Cardiology assisting with care. Continues to require inpatient management. Problems addressed as follows: Inferior STEMI CAD Hypertension Hyperlipidemia -Patient presented with arm pain, had changes on EKG consistent with inferior STEMI. Taken to Steam Conditioning Operator, thrombectomy performed and 1 drug-eluting stent placed to the RCA. -Continue aspirin 81 mg daily and Plavix 75 mg daily -Continue Lipitor 40 mg daily, LDL 71 -Initiated on lisinopril 2.5 mg daily. -Echo obtained, formal read with EF of 40%, mild to moderate global hypokinesis. Moderate RV dilation. Will monitor overnight with adjustment to meds. Continue telemetry. Reported history of A-fib with cardioversion in 2021. Currently in sinus rhythm. [id number] score of 3. Not on any oral anticoagulation at this time. Further discussion pending monitoring on telemetry and cardiology recommendations in the morning A1c 5.2. Not diagnostic for diabetes Hemoglobin 14.9. Platelets 106. BUN 20, creatinine 1.0. Repeat CBC, CMP, magnesium ordered for the morning Full code Cardiac diet Heparinized in outside laborer
--- NOTE | 2024-08-30 18:45 | PC.NURSE ---
Pt A&O x4. Sitting up in bed. Denies any chest discomfort or SOA. Medications administered per jul. VSS. Call light within reach. Family at bedside.
[2024-08-30] MEDS: ATORVASTATIN 40MG TABLET 40 MG PO (21:27)
[2024-08-30] MEDS: SODIUM CHLORIDE 0.9% 10ML FLUSH SYRINGE 10 ML IV ×2 (21:33→21:34)
[2024-08-31] VITALS: BP 106/56; PULSE 66; PULSE 70; RESP 16; TEMP 36.7; O2SAT 94
[2024-08-31 04:00] VITALS: BP 127/65; PULSE 70; PULSE 81; RESP 16; TEMP 36.7; O2SAT 98; BMI 55.0
--- NOTE | 2024-08-31 04:10 | PC.NURSE ---
Pt. is alert and orientated x 4. Pt. is on room air. Pt. states that he feels good. Denies any chest pain or SOB. Right radial cath site with dressing in place. dressing is clean, dry, and intact. Pt. had family at bedside until visiting hours ended. Pt. sleeping well this shift. No c/o's and no needs this shift. Pt. getting up to bathroom, gait steady. Personal items and call roblero in reach.
--- NOTE | 2024-08-31 07:52 | EXP.DC.SUM ---
General Admission date:: 08/29/24 Discharge date: 08/31/24 HPI HPI HPI: This is a 73-year-old male who has a past medical history significant for hypertension who presents with a chief complaint of bilateral arm weakness. Due to patient's symptoms, he presented to the emergency room for evaluation. While in the emergency room, patient was noted to have an acute STEMI. Acute STEMI alert was activated. Patient was given DAPT therapy and transition to the specialist employee labor relations for percutaneous coronary intervention. During my evaluation of the patient, patient was not complaining of any chest pain but reports that he has been having this arm weakness that started about 1-1/2 hours prior to presenting to the hospital. He is currently without any lightheadedness, dizziness, PND, orthopnea, nausea, vomiting, shortness of breath, dyspnea, or diarrhea. Additional pertinent labs obtained include a bicarbonate of 31, blood glucose 137, triglycerides of 294, LDL of 71, and HDL 35. Hospital Course Hospital Course Hospital Course: 73-year-old male who presented with bilateral arm weakness and pain. Found to have inferior STEMI on presentation. Taken to Vice President Planning, drug-eluting stent placed in the RCA after thrombectomy. Started on aspirin and Plavix. Monitored for 48 hours. No significant arrhythmias. Overall did well. EF greater than 35%, does not need LifeVest at discharge. Stable to discharge home with close outpatient monitoring. Problems addressed as follows: Inferior STEMI CAD Hypertension Hyperlipidemia -Patient presented with arm pain, had changes on EKG consistent with inferior STEMI. Taken to Vice President Planning, thrombectomy performed and 1 drug-eluting stent placed to the RCA. Continue aspirin 81 mg daily and Plavix 75 mg daily. Continue Lipitor 40 mg daily, LDL 71. Initiated on lisinopril 2.5 mg daily and metoprolol succinate 25 mg daily. Continue home HCTZ 25 mg every 48 hours. Echo obtained, formal read with EF of 40%, mild to moderate global hypokinesis. Moderate RV dilation. Monitored for 48 hours. No further episodes of arrhythmia or issues. Chest pain resolved. Overall doing well. Reported history of A-fib with cardioversion in 2021. Currently in sinus rhythm. [id number] score of 3. Not on any oral anticoagulation at this time A1c 5.2. Not diagnostic for diabetes Hemoglobin 14.9. Platelets 106. BUN 20, creatinine 1.0. Strongly encouraged cessation. Patient open and nicotine patches. Discharged with prescription for nicotine patches to promote avoidance of tobacco Total time spent on discharge 32 minutes in counseling, documentation, chart review, and direct care with patient. Exam Data for Last 24 hours Vital signs and Labs for Last 24 Hours: Temp Pulse Resp BP Pulse Ox O2 Del Method 98.1 F 81 16 127/65 98 Room Air 08/31/24 04:00 08/31/24 04:00 08/31/24 04:00 08/31/24 04:00 08/31/24 04:00 08/31/24 06:58 Laboratory Results - last 24 hr 08/30/24 05:54: Hemoglobin A1c 5.2 I & O for Last 24 hours: Intake & Output 08/28/24 08/29/24 08/30/24 08/31/24 23:59 23:59 23:59 23:59 Intake Total 1430 / 1830 400 / 400 Output Total 300 / 300 0 / 0 Balance 1130 / 1530 400 / 400 Weight 92.624 kg 92.624 kg 194.4 kg Microbiology Reports for the Last 24 Hours: Microbiology 08/30/24 13:51 Sputum - Expectorated Sputum Gram Stain - Final Constitutional Constitutional: no acute distress, average body habitus and cooperative *Routine HEENT Exam Head: Present normocephalic Eye: Present EOMI and PERRL ENT: Present mucous membranes moist *Routine Neck Exam Neck: Present supple; Absent lymphadenopathy *Routine Respiratory Exam Respiratory: Present CTA bilaterally; Absent rhonchi, wheezes or crackles *Routine Cardiovascular Exam Cardiovascular: Present RRR *Routine Abdominal Exam Abdominal: Present soft and normoactive bowel sounds; Absent tenderness *Routine Rectal Exam Patient deferred: visual exam *Routine Exam Patient deferred: penile exam *Routine Extremities Exam Extremities: Absent cyanosis, clubbing or edema *Routine Skin Exam Skin: Present intact and warm; Absent rash *Routine Neurological Exam Neurological: Present alert, oriented X3 and moving all extremities; Absent altered mental status Results Data Completed and Pending Labs on day of discharge: Labs from last 24 hours 08/30/24 05:54 Hemoglobin A1c 5.2 DS: Diagnosis Discharge Diagnosis (1) STEMI (ST elevation myocardial infarction): Status: Acute Code(s): I21.3 - ST elevation (STEMI) myocardial infarction of unspecified site Qualifiers: Involved coronary artery: right coronary artery Qualified Code(s): I21.11 - ST elevation (STEMI) myocardial infarction involving right coronary artery (2) Hypertension: Status: Acute Code(s): I10 - Essential (primary) hypertension Qualifiers: Hypertension type: primary hypertension Qualified Code(s): I10 - Essential (primary) hypertension (3) Hyperlipidemia: Status: Acute Code(s): E78.5 - Hyperlipidemia, unspecified Qualifiers: Hyperlipidemia type: mixed hyperlipidemia Qualified Code(s): E78.2 - Mixed hyperlipidemia (4) Tobacco use: Status: Acute Code(s): Z72.0 - Tobacco use Meds Home Medications and Allergies Home Medications ?Medication ?Instructions ?Recorded ?Confirmed ?Type hydrochlorothiazide 25 mg tablet 25 mg PO Q48H 08/29/24 08/30/24 History aspirin 81 mg tablet,delayed 81 mg PO DAILY 30 days #30 tabs 08/31/24 Rx release atorvastatin 40 mg tablet 40 mg PO HS 30 days #30 tabs 08/31/24 Rx clopidogrel 75 mg tablet 75 mg PO DAILY 30 days #30 tabs 08/31/24 Rx clopidogrel 75 mg tablet (Plavix) 75 mg PO DAILY #3 tabs 08/31/24 Rx lisinopril 2.5 mg tablet 2.5 mg PO DAILY 30 days #30 tabs 08/31/24 Rx metoprolol succinate 25 mg 25 mg PO DAILY 30 days #30 tabs 08/31/24 Rx tablet,extended release 24 hr nicotine 21 mg/24 hr daily 21 mg transdermal DAILY 28 days 08/31/24 Rx transdermal patch #28 [id number] New Prescriptions to Start Prescriptions: Sandoval Casas atorvastatin Noreen,Sandoval clopidogrel Sandoval Sorto clopidogrel [Plavix] Sandoval Sorto lisinopril Sandoval Sorto metoprolol succinate Sandoval Sorto nicotine Sandoval Sorto Allergies Allergy/AdvReac Type Severity Reaction Status Date / Time Penicillins (PENICILLINS) Allergy Mild Unknown Verified 08/29/24 19:47 allergy reaction Discharge Plan Disposition Patient Disposition: Home, Self-Care Condition: Fair Discharge Order Discharge Orders: Discharge Order (Routine); Ordered 08/31/24 Ordered By: Sandoval Sorto Follow up Plan Follow up with: Thomas Gruber PA [Physician Loader Engineer] - 09/11/24 3:00 pm Sergey Olmos MD [Primary Care Provider] - See instructions (Please call for follow up appointment) Prescriptions/Medication Reconciliation: New atorvastatin 40 mg Tablet 40 mg PO HS 30 Days Qty: 30 0RF clopidogrel 75 mg Tablet 75 mg PO DAILY 30 Days Qty: 30 0RF metoprolol succinate 25 mg Tablet Extended Release 24 Hr 25 mg PO DAILY 30 Days Qty: 30 0RF lisinopril 2.5 mg Tablet 2.5 mg PO DAILY 30 Days Qty: 30 0RF nicotine 21 mg/24 hr Patch 24 Hour 21 mg transdermal DAILY 28 Days Qty: 28 0RF clopidogrel [Plavix] 75 mg tablet 75 mg PO DAILY Qty: 3 0RF Continued hydrochlorothiazide 25 mg Tablet 25 mg PO Q48H aspirin 81 mg Tablet,Delayed Release (Dr/Ec) 81 mg PO DAILY 30 Days Qty: 30 0RF Other Ambulatory Orders: Basic Metabolic Panel (Routine) Timeframe: 20240911 Facility: [facility] - Location: Laboratory Ordered By: Jackson Bolanos Complete Blood Count Auto Diff (Routine) Timeframe: 20240812 Facility: [facility] - Location: Laboratory Ordered By: Jackson Bolanos Problem Reconciliation Problems Reviewed?: Yes Patient Discharge Instructions ACTIVITY: Continue current activity DIET: continue same diet Patient Instructions: Heart Attack, DI for Cardiac Catheterization, DI for Surgical Site Infection, DI for Chest Pain, Stop Light Pneumonia Print Language: [place]ian Providers Primary Care Provider: Sergey Olmos Admit Provider: Sandoval Sorto Attending Provider: Sandoval Sorto
[2024-08-31 08:00] VITALS: BP 122/70; PULSE 65; PULSE 70; RESP 18; TEMP 36.8; O2SAT 94
--- NOTE | 2024-08-31 08:11 | CARE MANAGER ---
Spoke with [facility] this morning. Medication prescriptions have been sent to pharmacy, all are covered and should ship out to patient today. I did voice my concerns about importance of medication reaching patient tomorrow.
[2024-08-31] MEDS: ASPIRIN EC 81MG TABLET 81 MG PO (08:54)
[2024-08-31] MEDS: CLOPIDOGREL 75MG TAB 75 MG PO (08:54)
[2024-08-31] MEDS: LISINOPRIL 2.5MG TABLET 2.5 MG PO (08:54)
[2024-08-31] MEDS: METOPROLOL SUCCINATE XL 25MG TABLET 25 MG PO (08:58)
--- NOTE | 2024-08-31 09:13 | PC.NURSE ---
pt is ambulating around the unit. denies any issues. no reports of soa or chest pain. tolerating well.
--- NOTE | 2024-08-31 09:24 | EXP.CARD.PN ---
Subjective Subjective Date: 08/31/24 Time: 09:24 Principal diagnosis: STEMI Interval history: 73 yo WM in bed in NAD. Ambulating in room without dizziness. No complaints. Exam Data for Last 24 hours Vital signs and Labs for Last 24 Hours: Temp Pulse Resp BP Pulse Ox O2 Del Method 98.2 F 65 18 122/70 94 L Room Air 08/31/24 08:00 08/31/24 08:00 08/31/24 08:00 08/31/24 08:00 08/31/24 08:00 08/31/24 08:00 I & O for Last 24 hours: Intake & Output 08/28/24 08/29/24 08/30/24 08/31/24 11:59 11:59 11:59 11:59 Intake Total 590 / 590 1240 / 1240 Output Total 300 / 300 0 / 0 Balance 290 / 290 1240 / 1240 Weight 204 lb 3.215 oz 428 lb 9.258 oz Microbiology Reports for the Last 24 Hours: Microbiology 08/30/24 13:51 Sputum - Expectorated Sputum Gram Stain - Final Constitutional Constitutional: no acute distress *Routine Respiratory Exam Respiratory: Present CTA bilaterally *Routine Cardiovascular Exam Cardiovascular: Present RRR Progress Note: A&P Assessment and plan (1) STEMI (ST elevation myocardial infarction): Status: Acute (2) Hypertension: Status: Acute (3) Hyperlipidemia: Status: Acute (4) Tobacco use: Status: Acute Assessment and Plan Assessment and Plan for All Diagnoses:: 1. Inferior STEMI -CHERELLE to RCA -ASA and plavix -atorvastatin 40 mg daily 2. HTN -lisinopril 2.5 mg daily -Echo EF 40% 3. HLD -start atorvastatin -LDL 71 4. History of A. fib X 1 with cardioversion about 2021 -monitor on telemetry -no OAC at this time -CHADS-VASC is 3 -home with 2 wk monitor 5. thrombocytopenia -plt dropped from 143 to 106. -repeat in AM Stable for discharge from cardiology standpoint. Home with 2 wks monitor due to history of A. fib (not seen here) Home meds: aspirin 81 mg daily plavix 75 mg daily lisinopril 2.5 mg daily metoprolol succinate 25 mg daily atorvastatin 40 mg daily Follow up in one week.
--- NOTE | 2024-09-01 10:00 | SW/DCPLANNER ---
Spoke with patient on the phone. Patient stated that he is doing good. Patient stated that he is aware of his upcoming appointment and plans to call his PCP and schedule an appointment with them later today. Patient stated that he has not received his new medicine from [facility] yet hopes to get it today. Patient stated that he has no concerns or questions at this time. Mellissa Lara
== END 2024-08-31 13:09 | disposition home or self-care (01) | DRG 229 ==
LOC: ER 19:56 → CATHLAB 20:18 → 2ND 20:41
PROVIDERS: Internal Medicine; Nurse Practitioner Family; Admitting Provider Internal Medicine Adolescent Medicine; Emergency Provider Emergency Medicine; PCP Internal Medicine; Visit Provider Internal Medicine Adolescent Medicine
PROC: 02C00ZZ Extirpation of Matter from Coronary Artery, One Artery, Open Approach (ICD-10-PCS; principal; 2024-08-29 19:55)
DX: I21.19 ST elevation (STEMI) myocardial infarction involving other coronary artery of inferior wall (principal); I25.10 Atherosclerotic heart disease of native coronary artery without angina pectoris; I10 Essential (primary) hypertension; I77.1 Stricture of artery; F17.210 Nicotine dependence, cigarettes, uncomplicated; E78.5 Hyperlipidemia, unspecified; Z88.0 Allergy status to penicillin; Z79.899 Other long term (current) drug therapy; Z85.51 Personal history of malignant neoplasm of bladder; R73.9 Hyperglycemia, unspecified
CPT/HCPCS: 36415; 80048; 80053; 80061; 82962; 83036; 84484; 85025; 85347; 87070; 87081; 87205; 92941; 92973; 93005; 93270; 93306; 93454; 99152; 99291; C1725; C1769; C1874; C9606; J1200; J1644; J7030; Q9967

== ENCOUNTER 2024-10-20 08:09 | Outpatient (CLI) | payer OTHER, SELFPAY ==
--- NOTE | 2024-10-20 08:15 | CA_ITS ---
APPROVED REPORT EXAM: Limited 2D Echocardiogram [employer]: Pooja Ariza RVT Ht: 6 ft 2 in Wt: 204lbs BSA: 2.19 BP: 94/52 mmHg Indications: EF CHECK,CARDIOMYOPATHY 2D Dimensions EF AP4 49.10 % GL Strain -16.3 % M-Mode Dimensions RVDd 3.12 cm (0.9-2.6) LA Diam 3.77 cm (1.9-4.0) LVDd 4.10 cm (3.5-5.7) LVDs 2.72 cm (3.5-5.7) IVSd 1.16 cm (0.6-1.1) PWd 0.67 cm (0.6-1.1) EF (Teich) 62.90% FS 33.70% EDV (Teich) 74.20 mL ESV (Teich) 27.50 mL Other Information Study Quality: Fair Conclusion This is a limited TTE to evaluate for LV systolic function. Limited windows are obtained. The left ventricle is normal in size. There is normal LV wall thickness. There is mild reduction in global LV systolic function. The septum is asynchronous. LVEF is 45-50%. Compared to prior study from 08/30/2024, there is slight improvement in LV systolic function, but LVEF remains slightly reduced. Electronically signed by : Bushra Owens MD 10/20/2024 13:16:07
== END 2024-10-20 23:59 | disposition home or self-care (01) ==
LOC: RT 08:10
PROVIDERS: PCP Internal Medicine; Visit Provider Physician Assistant
DX: I11.0 Hypertensive heart disease with heart failure (principal); I50.20 Unspecified systolic (congestive) heart failure; I21.3 ST elevation (STEMI) myocardial infarction of unspecified site; I42.9 Cardiomyopathy, unspecified; R93.1 Abnormal findings on diagnostic imaging of heart and coronary circulation
CPT/HCPCS: 93308